=== PATIENT | female | born 1970 | race Caucasian/White ===

== ENCOUNTER → 2020-11-01 | Outpatient (CLI) | payer MEDICARE, OTHER ==
[~2020-11-01] MED LIST: ALLOPURINOL100 MG PO; ATORVASTATIN CA20 MG PO; FENOFIBRATE160 MG PO; GABAPENTIN400 MG PO; IBU800 MG PO; KEFLEX CAP 500500 MG PO; METOPROL PO; PRAZOSIN HCL2 MG PO; PYRIDIUM100 MG PO; SEROQUEL100 MG PO; TIZANIDINE HCL4 MG PO; VIT D3 PO; ZOLOFT100 MG PO
== END ==
LOC: HEART 5 13:00
DX: R07.9 Chest pain, unspecified (principal); I08.1 Rheumatic disorders of both mitral and tricuspid valves
CPT/HCPCS: 93306

== ENCOUNTER 2021-02-16 18:23 | Emergency (ER) | payer MEDICARE, OTHER ==
[2021-02-16] MEDS ORDERED: LODINE CAP 300300 MG PO (22:09)
[2021-02-16] MEDS ORDERED: NORFLEX 100 MG100 MG PO (22:09)
== END 2021-02-16 22:13 | disposition home or self-care (01) ==
LOC: ER1 18:23
DX: S16.1XXA Strain of muscle, fascia and tendon at neck level, initial encounter (principal); S39.012A Strain of muscle, fascia and tendon of lower back, initial encounter; S29.012A Strain of muscle and tendon of back wall of thorax, initial encounter; F17.290 Nicotine dependence, other tobacco product, uncomplicated; I10 Essential (primary) hypertension; V49.40XA Driver injured in collision with unspecified motor vehicles in traffic accident, initial encounter; Y92.410 Unspecified street and highway as the place of occurrence of the external cause
CPT/HCPCS: 72125; 72128; 72131; 99283

== ENCOUNTER → 2021-07-03 | Day surgery (SDC) | payer MEDICARE, OTHER ==
[~2021-07-03] MED LIST changes: +COLACE 100MG C100 MG PO; +GABAPENTIN600 MG PO; +LODINE CAP 300300 MG PO; +NORFLEX 100 MG100 MG PO; +PRAZOSIN HCL5 MG PO; +TOPROL XL50 MG PO
== END | disposition home or self-care (01) ==
LOC: OR 07:18
DX: Z12.11 Encounter for screening for malignant neoplasm of colon (principal); K56.609 Unspecified intestinal obstruction, unspecified as to partial versus complete obstruction; K59.09 Other constipation; E66.8 Other obesity; I10 Essential (primary) hypertension; K21.9 Gastro-esophageal reflux disease without esophagitis; F41.9 Anxiety disorder, unspecified; F32.A Depression, unspecified; E78.5 Hyperlipidemia, unspecified; Z90.49 Acquired absence of other specified parts of digestive tract; Z68.37 Body mass index [BMI] 37.0-37.9, adult; Z96.649 Presence of unspecified artificial hip joint; Z20.822 Contact with and (suspected) exposure to COVID-19; Z86.16 Personal history of COVID-19
CPT/HCPCS: J2704; J7040; U0002

== ENCOUNTER → 2021-08-03 | Outpatient (CLI) | payer MEDICARE, OTHER ==
[2021-08-03 16:56] LABS: HEMOGLOBIN 13.1 gm/dl (12.3-15.3); RED BLOOD COUNT 4.25 M/UL (4.00-5.10); WHITE BLOOD COUNT 9.6 K/UL (4.5-11.0)
== END ==
LOC: LAB 16:18
PROVIDERS: Nurse Practitioner Family
DX: R10.9 Unspecified abdominal pain (principal)
CPT/HCPCS: 36415; 80053; 81001; 82150; 83690; 85025; 87086

== ENCOUNTER → 2021-08-10 | Outpatient (CLI) | payer MEDICARE, OTHER | LOC: CT 10:39 | DX: R10.9 Unspecified abdominal pain (principal) | CPT/HCPCS: Q9967 ==

== ENCOUNTER → 2021-09-13 | Day surgery (SDC) | payer MEDICARE, OTHER ==
[~2021-09-13] MED LIST changes: +CLONIDINE HCL0.1 M1 PO; +NITROSTAT 0.40.4 MG SL; +PERCOCET 5/325 T1 EA PO; +STOOL SOFTENER100 M1 PO; +ZOFRAN 4 MG TAB4 MG PO
== END | disposition home or self-care (01) ==
LOC: OR 08:46
DX: K42.9 Umbilical hernia without obstruction or gangrene (principal); K66.0 Peritoneal adhesions (postprocedural) (postinfection); M19.90 Unspecified osteoarthritis, unspecified site; M10.9 Gout, unspecified; I10 Essential (primary) hypertension; E78.00 Pure hypercholesterolemia, unspecified; Z86.16 Personal history of COVID-19; Z72.0 Tobacco use
CPT/HCPCS: C1713; C1781; J1100; J1170; J1885; J2001; J2250; J2405; J2704; J2710; J3010

== ENCOUNTER 2021-09-24 17:06 | Emergency (ER) | payer MEDICARE, OTHER ==
[2021-09-24 19:24] LABS: HEMOGLOBIN 12.5 gm/dl (12.3-15.3); RED BLOOD COUNT 4.11 M/UL (4.00-5.10)
[2021-09-25] MEDS ORDERED: ZOFRAN 4 MG TAB4 MG PO (03:19)
[2021-09-25] MEDS ORDERED: OMNICEF 300 MG300 MG PO (03:19)
== END 2021-09-25 05:10 | disposition home or self-care (01) ==
LOC: ER1 17:06
PROVIDERS: Emergency Medicine
DX: G89.18 Other acute postprocedural pain (principal); R10.9 Unspecified abdominal pain; N39.0 Urinary tract infection, site not specified; E78.5 Hyperlipidemia, unspecified; I10 Essential (primary) hypertension
CPT/HCPCS: 80053; 81001; 83605; 83690; 85025; 85652; 86140; 87040; 96374; 96375; 96376; 99284; J0696; J2270; J2405; Q9967

== ENCOUNTER → 2021-11-06 | Outpatient (CLI) | payer MEDICARE, OTHER ==
[~2021-11-06] MED LIST changes: +OMNICEF 300 MG300 MG PO
== END ==
LOC: MRI 11-05 13:00
DX: R11.0 Nausea (principal); R10.9 Unspecified abdominal pain; Z90.49 Acquired absence of other specified parts of digestive tract
CPT/HCPCS: 74183; A9577